=== PATIENT | female | born 1980 | race Asian ===

== ENCOUNTER 2020-07-03 12:12 | Emergency (ER) | payer OTHER, SELFPAY ==
[~2020-07-03] VITALS: Ht 157.5 cm; Wt 51.6 kg
[2020-07-03 12:20] VITALS: BP 128/78
[2020-07-03] MEDS ORDERED: METHOCARBAMOL 750 MG TABLET PO ONE (13:00)
[2020-07-03] MEDS ORDERED: IBUPROFEN 200 MG TABLET PO ONE (13:00)
[2020-07-03] MEDS ORDERED: METHOCARBAMOL 750 MG TABLET ONE (13:01)
[2020-07-03] MEDS ORDERED: IBUPROFEN 600 MG TABLET ONE (13:01)
== END 2020-07-03 13:53 | disposition home or self-care (01) ==
LOC: ED 12:25
DX: S16.1XXA Strain of muscle, fascia and tendon at neck level, initial encounter (principal); S39.012A Strain of muscle, fascia and tendon of lower back, initial encounter; G89.11 Acute pain due to trauma; V89.2XXA Person injured in unspecified motor-vehicle accident, traffic, initial encounter; Y93.89 Activity, other specified; Y92.488 Other paved roadways as the place of occurrence of the external cause; Y99.8 Other external cause status
CPT/HCPCS: 72020; 72050; 72110; 99284